=== PATIENT | female | born 1965 | race Caucasian/White ===

== ENCOUNTER 2016-10-24 13:54 | Emergency (ER) | payer OTHER ==
[2016-11-05] MEDS ORDERED: OXYCOD PO (14:42)
[2016-11-05] MEDS ORDERED: MSCONT15 PO (14:42)
[2016-11-05] MEDS ORDERED: BEN25 PO (14:43)
[2016-11-05] MEDS ORDERED: GLUCOPHAGE1000 MG PO (14:43)
[2016-11-05] MEDS ORDERED: PRILO PO (14:43)
[2016-11-10] MEDS ORDERED: CONSTULOSE PO (09:18)
== END 2016-10-24 16:01 | disposition home or self-care (01) ==
LOC: ER 13:54
DX: M54.9 Dorsalgia, unspecified (principal); E11.9 Type 2 diabetes mellitus without complications; J44.9 Chronic obstructive pulmonary disease, unspecified; R56.9 Unspecified convulsions; Z88.0 Allergy status to penicillin; Z88.2 Allergy status to sulfonamides; Z88.6 Allergy status to analgesic agent; Z91.013 Allergy to seafood; W19.XXXA Unspecified fall, initial encounter
CPT/HCPCS: 72072; 72100; 99283; A9270-GY